=== PATIENT | male | born 1985 | race Two or more races ===

== ENCOUNTER 2017-07-10 09:21 | Emergency (ER) | payer SELFPAY ==
[~2017-07-10] VITALS: Ht 182.9 cm; Wt 95.0 kg
[2017-07-10 09:28] VITALS: BP 145/91
[2017-07-10] MEDS ORDERED: ALBUTEROL/IPRATROPIUM 2.5MG/0.5MG, 3 ML NPPB ONE (10:00)
[2017-07-10] MEDS ORDERED: ALBUTEROL/IPRATROPIUM 2.5MG/0.5MG, 3 ML ONE (10:04)
[2017-07-10] MEDS ORDERED: ALBUTEROL SULFATE 2.5 MG/3 ML ONE (10:19)
[2017-07-10] MEDS ORDERED: ALBUTEROL SULFATE 2.5 MG/3 ML NPPB ONE (10:30)
== END 2017-07-10 10:51 | disposition home or self-care (01) ==
LOC: ED 10:31
DX: J45.21 Mild intermittent asthma with (acute) exacerbation (principal); J20.8 Acute bronchitis due to other specified organisms; J00 Acute nasopharyngitis [common cold]
CPT/HCPCS: 71010; 94640; 99284; J7512; 99283; J7613; J7620